=== PATIENT | female | born 1950 | race Caucasian/White ===

== ENCOUNTER 2022-06-30 20:11 | Emergency (ER) | payer MEDICARE ==
[2022-07-01 00:40] LABS: RED BLOOD COUNT 4.34 M/UL (4.00-5.10); WHITE BLOOD COUNT 8.9 K/UL (4.5-11.0)
[2022-07-01 01:02] LABS: BUN/CREATININE RATIO 26 (0-10)
== END 2022-07-01 01:15 | disposition home or self-care (01) ==
LOC: ER1 20:11
PROVIDERS: Nurse Practitioner
DX: N39.0 Urinary tract infection, site not specified (principal); E11.9 Type 2 diabetes mellitus without complications; Z88.0 Allergy status to penicillin
CPT/HCPCS: 80053; 81001; 85025; 87086; 99283